=== PATIENT | male | born 1965 | race American Indian/Alaskan Native ===

== ENCOUNTER 2018-02-13 08:53 | Emergency (ER) | payer MEDICAID ==
[~2018-02-13] VITALS: Ht 172.7 cm; Wt 53.0 kg
[~2018-02-13 08:53] MED LIST: ACET-2119 PO; ALBU8HFA PO; AMOX500T2 PO; IBUP-1986 PO; PER10325T PO
[2018-02-13 08:57] VITALS: BP 183/106
== END 2018-02-13 10:50 | disposition home or self-care (01) ==
LOC: ER 08:54
DX: R07.81 Pleurodynia (principal); G89.29 Other chronic pain; Z86.14 Personal history of Methicillin resistant Staphylococcus aureus infection; Z98.890 Other specified postprocedural states; Z56.0 Unemployment, unspecified; Z59.0 Homelessness; Y08.89XA Assault by other specified means, initial encounter
CPT/HCPCS: 71100; 99284

== ENCOUNTER 2018-03-23 11:09 | Emergency (ER) | payer MEDICAID ==
[~2018-03-23] VITALS: Ht 172.7 cm; Wt 68.2 kg
[2018-03-23 11:11] VITALS: BP 113/62
[2018-03-23] MEDS ORDERED: AMOX-422 PO (11:54)
== END 2018-03-23 12:23 | disposition home or self-care (01) ==
LOC: ER 11:10
DX: L03.113 Cellulitis of right upper limb (principal)
CPT/HCPCS: 99283

== ENCOUNTER 2020-03-25 10:46 | Emergency (ER) | payer MEDICAID, OTHER ==
[~2020-03-25] VITALS: Ht 172.7 cm; Wt 65.9 kg
[2020-03-25] MEDS ORDERED: HYDROcodone/acetaminophen 10/325mg tab PO ONE (11:10)
[2020-03-25] MEDS ORDERED: HYDR-4353 PO (12:10)
[2020-03-25 12:18] VITALS: BP 124/98
== END 2020-03-25 12:20 | disposition home or self-care (01) ==
LOC: ER 10:46
DX: M25.522 Pain in left elbow (principal); G89.29 Other chronic pain; Z86.14 Personal history of Methicillin resistant Staphylococcus aureus infection; Z98.890 Other specified postprocedural states; Z56.0 Unemployment, unspecified; Z59.0 Homelessness; Z79.899 Other long term (current) drug therapy
CPT/HCPCS: 73080; 99284

== ENCOUNTER 2020-03-28 10:51 | Inpatient (IN) | payer MEDICAID, OTHER ==
[~2020-03-28] VITALS: Ht 172.7 cm; Wt 56.0 kg
[~2020-03-28 10:51] MED LIST changes: +HYDR-4353 PO
[2020-03-28] MEDS ORDERED: normal saline 1000ml 1,000 ML IV ONE (13:33)
[2020-03-28] MEDS ORDERED: ampicillin/sulbac 3gm/NS 100ml 100 ML IV ONE (14:00)
[2020-03-28] MEDS ORDERED: ampicillin/sulbac 3gm/NS 100ml 100 ML IV SCH (14:00)
[2020-03-28 14:10] LABS: BASOPHILS % (AUTO) 0.2 % (0-1); EOSINOPHILS # (AUTO) 0.2 X10'3 (0-0.9); EOSINOPHILS % (AUTO) 1.4 % (0-6); HEMATOCRIT 39.6 % (42.0-52.0); HEMOGLOBIN 13.1 g/dl (14.0-17.9); LYMPHOCYTES # (AUTO) 1.5 X10'3 (1.1-4.8); LYMPHOCYTES % (AUTO) 10.6 % (21-51); MEAN CORPUSCULAR HGB CONC 33.1 g/dL (33.0-36.5); MEAN CORPUSCULAR VOLUME 93.7 FL (78-98); MEAN PLATELET VOLUME 7.4 FL (7.4-10.4); MONOCYTES % (AUTO) 7.2 % (2-12); NEUTROPHILS # (AUTO) 11.4 X10'3 (1.8-7.7); NEUTROPHILS % (AUTO) 80.6 % (42-75); PLATELET COUNT 362 X10'3 (140-440); RED BLOOD COUNT 4.23 X10'6 (4.70-6.10); WHITE BLOOD COUNT 14.1 X10'3 (4.5-11.0)
[2020-03-28 14:22] LABS: ALANINE AMINOTRANSFERASE 27 U/L (12-78); ALBUMIN 3.2 G/DL (3.4-5.0); ALBUMIN/GLOBULIN RATIO 0.7 (1.1-1.5); ALKALINE PHOSPHATASE 73 IU/L (46-116); ANION GAP 11 (8-16); ASPARTATE AMINO TRANSFERASE 24 U/L (10-37); BILIRUBIN,TOTAL 0.2 MG/DL (0.1-1.0); BLOOD UREA NITROGEN 19 MG/DL (7-18); BUN/CREATININE RATIO 16.2 (5.4-32.0); C-REACTIVE PROTEIN 21.26 MG/DL (0.0-0.5); CALCIUM 9.5 MG/DL (8.5-10.1); CHLORIDE 103 MMOL/L (99-107); CREATININE 1.17 MG/DL (0.60-1.10); GLUCOSE 74 MG/DL (70-104); POTASSIUM 4.1 MMOL/L (3.5-5.1); SODIUM 139 MMOL/L (135-145); TOTAL CARBON DIOXIDE 25.2 MMOL/L (24-32); TOTAL PROTEIN 7.9 G/DL (6.4-8.2); eGFR 65 ML/MIN
[2020-03-28] MEDS ORDERED: NO HOME MEDS (15:13)
[2020-03-28] MEDS ORDERED: ondansetron/PF 4mg/2ml inj IV PRN (15:45)
[2020-03-28] MEDS ORDERED: magnesium 2GM in 50ml NS 50 ML IV PRN (15:45)
[2020-03-28] MEDS ORDERED: normal saline 1000ml 1,000 ML IV SCH (15:45)
[2020-03-28] MEDS ORDERED: potassium Cl 20 mEq SR tablet PO PRN ×2 (15:45)
[2020-03-28] MEDS ORDERED: potassium CL 10mEq/100ml bag 100 ML IV PRN ×2 (15:45)
[2020-03-28] MEDS ORDERED: magnesium Cl slow-release 64mg tablet PO PRN (15:45)
[2020-03-28] MEDS ORDERED: magnesium 4gm in 100ml NS 100 ML IV PRN (15:45)
[2020-03-28] MEDS ORDERED: ketorolac tromethamine 15mg/ml inj. IV ONE (17:25)
[2020-03-28] MEDS ORDERED: LORazepam 2 mg/ml vial IV ONE (17:25)
[2020-03-28] MEDS: VANCOMYCIN 750MG IV in NS 250 ML IV SCH (17:44)
[2020-03-28] MEDS: K and/or MAG REPLACEMENT MC SCH (19:17)
[2020-03-28] MEDS ORDERED: vancomycin/NS 1 GM ADD-VANTAGE 250 ML IV SCH (20:00)
[2020-03-28] MEDS: acetaminophen 325mg tablet PO PRN (23:40)
[2020-03-28] MEDS: normal saline 1000ml 1,000 ML IV SCH (23:40)
[2020-03-28 23:41] VITALS: BP 149/92
[2020-03-29] MEDS: VANCOMYCIN 750MG IV in NS 250 ML IV SCH ×2 (05:00→17:29)
[2020-03-29] MEDS: acetaminophen 325mg tablet PO PRN ×2 (05:01→23:07)
[2020-03-29 05:44] LABS: BASOPHILS # (AUTO) 0.1 X10'3 (0-0.2); BASOPHILS % (AUTO) 0.5 % (0-1); EOSINOPHILS # (AUTO) 0.2 X10'3 (0-0.9); EOSINOPHILS % (AUTO) 1.2 % (0-6); HEMATOCRIT 38.3 % (42.0-52.0); HEMOGLOBIN 12.8 g/dl (14.0-17.9); LYMPHOCYTES % (AUTO) 13.9 % (21-51); MEAN CORPUSCULAR HEMOGLOBIN 31.3 PG (27.0-31.0); MEAN CORPUSCULAR HGB CONC 33.5 g/dL (33.0-36.5); MEAN CORPUSCULAR VOLUME 93.4 FL (78-98); MEAN PLATELET VOLUME 8.1 FL (7.4-10.4); MONOCYTES # (AUTO) 1.5 X10'3 (0-0.9); MONOCYTES % (AUTO) 10.5 % (2-12); NEUTROPHILS # (AUTO) 10.4 X10'3 (1.8-7.7); NEUTROPHILS % (AUTO) 73.9 % (42-75); PLATELET COUNT 384 X10'3 (140-440); WHITE BLOOD COUNT 14.1 X10'3 (4.5-11.0)
[2020-03-29 05:54] LABS: ALBUMIN 2.6 G/DL (3.4-5.0); ANION GAP 9 (8-16); BLOOD UREA NITROGEN 16 MG/DL (7-18); BUN/CREATININE RATIO 13.8 (5.4-32.0); CALCIUM 8.7 MG/DL (8.5-10.1); CHLORIDE 102 MMOL/L (99-107); CREATININE 1.16 MG/DL (0.60-1.10); GLUCOSE 94 MG/DL (70-104); MAGNESIUM 1.7 MG/DL (1.5-2.4); POTASSIUM 4.2 MMOL/L (3.5-5.1); SODIUM 136 MMOL/L (135-145); TOTAL CARBON DIOXIDE 25.2 MMOL/L (24-32); eGFR 65 ML/MIN
--- NOTE | 2020-03-29 06:29 | NUR ---
Problems reprioritized. Patient report given, questions answered & plan of care reviewed with Eva. Addendum: 03/29/20 at 0630 by Jn Samuel RN Amended: Links added.
[2020-03-29] MEDS: K and/or MAG REPLACEMENT MC SCH ×2 (08:00→20:00)
[2020-03-29 08:24] VITALS: BP 157/79
--- NOTE | 2020-03-29 09:23 | NUR ---
PAGER ID: [phone] MESSAGE: pt SHANE CHAUDHARY is having 10/10 pain in elbow unrelieved by non-pharmaceutical therapies. no pain medicine ordered. MD Franklin taking to sx this early afternoon. Eva [id number]
[2020-03-29] MEDS: morphine 2 MG/ML inj. syringe IV PRN ×3 (10:43→19:47)
[2020-03-29 11:58] VITALS: BP 144/89
[2020-03-29 12:14] LABS: PRE OP PARTIAL THROMB. TIME 33 SECONDS (22-32)
--- NOTE | 2020-03-29 15:56 | NUR ---
PAGER ID: [phone] MESSAGE: Panchito Bailey 340B Pt. VERY agitated that he is not going to OR today. Need Ativan and DIET order STAT PLEASE. Thank you. Eva [phone]
--- NOTE | 2020-03-29 15:57 | NUR ---
returned page. Diet ordered and ativan. aware pt. might leave AMA r/t postponed surgery.
[2020-03-29] MEDS: LORazepam 1 MG tablet PO PRN ×2 (16:50→23:07)
--- NOTE | 2020-03-29 17:46 | NUR ---
PAGER ID: [phone] MESSAGE: SHANE CHAUDHARY 340B pt. very cranky. smoke 5 cigs a day. wants 14 mg nicotine patch? MARY CARMEN [phone]
[2020-03-29 18:00] VITALS: BP 159/98
[2020-03-29] MEDS: nicotine 7mg patch - 24hr TD SCH (18:02)
--- NOTE | 2020-03-29 18:33 | NUR ---
This RN went into room to administer nicotine patch. IV alarming high pressure. Noted IV infiltrated. Some puffiness around IV site. Vanco still needs to be administered. Passed this information on to Opal Roth RN during report.
--- NOTE | 2020-03-29 18:36 | NUR ---
Gave report to Opal Montoya RN.
[2020-03-29] MEDS: lactobacillus rhamnosus 10,000 MMU CELLS/CAPSULE PO SCH (19:45)
[2020-03-30] VITALS (22 sets, daily range): BP systolic 122–161; BP diastolic 72–101
[2020-03-30] MEDS: cefepime 1GM in D5W 50mL 50 ML IV SCH ×3 (00:13→15:01)
[2020-03-30] MEDS: morphine 2 MG/ML inj. syringe IV PRN ×5 (00:14→21:20)
[2020-03-30] MEDS ORDERED: VANCOMYCIN LEVEL IV ONE (04:30)
[2020-03-30] MEDS: VANCOMYCIN 750MG IV in NS 250 ML IV SCH (05:11)
[2020-03-30] MEDS: nicotine 7mg patch - 24hr TD SCH (05:21)
--- NOTE | 2020-03-30 05:24 | NUR ---
Nicotine patch fell off in the shower, pt req another. Administered 0800 patch early. provided lemon swabs.
[2020-03-30 05:30] LABS: BASOPHILS # (AUTO) 0.1 X10'3 (0-0.2); BASOPHILS % (AUTO) 0.5 % (0-1); EOSINOPHILS # (AUTO) 0.1 X10'3 (0-0.9); EOSINOPHILS % (AUTO) 1.1 % (0-6); HEMATOCRIT 39.1 % (42.0-52.0); HEMOGLOBIN 12.8 g/dl (14.0-17.9); LYMPHOCYTES # (AUTO) 1.8 X10'3 (1.1-4.8); LYMPHOCYTES % (AUTO) 14.6 % (21-51); MEAN CORPUSCULAR HEMOGLOBIN 30.3 PG (27.0-31.0); MEAN CORPUSCULAR HGB CONC 32.7 g/dL (33.0-36.5); MEAN CORPUSCULAR VOLUME 92.7 FL (78-98); MEAN PLATELET VOLUME 7.8 FL (7.4-10.4); MONOCYTES # (AUTO) 1.4 X10'3 (0-0.9); MONOCYTES % (AUTO) 11.6 % (2-12); NEUTROPHILS # (AUTO) 8.7 X10'3 (1.8-7.7); NEUTROPHILS % (AUTO) 72.2 % (42-75); PLATELET COUNT 373 X10'3 (140-440); RED BLOOD COUNT 4.21 X10'6 (4.70-6.10); RED CELL DISTRIBUTION WIDTH 13.6 % (11.5-14.5); WHITE BLOOD COUNT 12.1 X10'3 (4.5-11.0)
[2020-03-30 05:36] LABS: PARTIAL THROMBOPLASTIN TIME 34 SECONDS (22-32)
[2020-03-30 05:40] LABS: ALBUMIN 2.4 G/DL (3.4-5.0); ANION GAP 8 (8-16); BLOOD UREA NITROGEN 14 MG/DL (7-18); BUN/CREATININE RATIO 11.8 (5.4-32.0); CALCIUM 8.8 MG/DL (8.5-10.1); CHLORIDE 101 MMOL/L (99-107); CREATININE 1.19 MG/DL (0.60-1.10); GLUCOSE 100 MG/DL (70-104); MAGNESIUM 1.9 MG/DL (1.5-2.4); POTASSIUM 4.1 MMOL/L (3.5-5.1); SODIUM 136 MMOL/L (135-145); TOTAL CARBON DIOXIDE 27.5 MMOL/L (24-32); VANCOMYCIN,TROUGH 7.2 UG/ML (6.0-14.0); eGFR 63 ML/MIN
--- NOTE | 2020-03-30 06:32 | NUR ---
Problems reprioritized. Patient report given, questions answered & plan of care reviewed with SHARON Joseph.
--- NOTE | 2020-03-30 06:37 | NUR ---
Patient in room [facility]. I have received report from Opal Roth RN and had the opportunity to ask questions and assume patient care.
[2020-03-30] MEDS: lactobacillus rhamnosus 10,000 MMU CELLS/CAPSULE PO SCH ×2 (07:45→19:25)
[2020-03-30] MEDS: K and/or MAG REPLACEMENT MC SCH ×2 (08:00→20:00)
[2020-03-30] MEDS ORDERED: ringers solution, lacted 1,000 ML IV ONE (08:28)
[2020-03-30] MEDS ORDERED: hydrALAZINE 20mg/ml inj. IV PRN ×2 (08:30→09:35)
[2020-03-30] MEDS ORDERED: ringers solution, lacted 1,000 ML IV SCH (09:34)
[2020-03-30] MEDS ORDERED: fentaNYL/PF 50MCG/1 ML 2ML syringe IV PRN ×2 (09:35)
[2020-03-30] MEDS ORDERED: labetalol 20mg/4ml (5mg/ml) syringe IV PRN (09:35)
[2020-03-30] MEDS ORDERED: ondansetron/PF 4mg/2ml inj IV PRN (09:35)
[2020-03-30] MEDS ORDERED: morphine 2 MG/ML inj. syringe IV PRN (09:35)
[2020-03-30] MEDS ORDERED: amLODIPine 5mg tablet PO ONE (09:50)
--- NOTE | 2020-03-30 09:50 | NUR ---
patients B/P 161/101 dr chaudhary paged. 10mg hydralazine given with no effect. Dr Chaudhary ordered norvasc 5mg po given to patient, is for surgery but will monitor while on floor.
--- NOTE | 2020-03-30 10:09 | NUR ---
ANESTHESIOLOGIST NOTIFIED THAT PATIENT'S PRE-OP BLOOD SUGAR IS 70. PER ANESTHESIOLOGIST OK.
--- NOTE | 2020-03-30 11:05 | NUR ---
Problems reprioritized. Patient report given, questions answered & plan of care reviewed with tello HERRERA.
[2020-03-30] MEDS ORDERED: sevoflurane 250ml liquid IH ONE (11:25)
[2020-03-30] MEDS ORDERED: dexamethasone sod phosphate 10mg/ml inj ONE (11:25)
[2020-03-30] MEDS ORDERED: fentaNYL /PF 50mcg/ml 5ml ampule ONE (11:32)
[2020-03-30] MEDS ORDERED: propofol inj 20 ML IV ONE (11:37)
[2020-03-30] MEDS ORDERED: LIDOcaine 2% (20mg/ml) 5ml vial ONE (11:37)
[2020-03-30] MEDS ORDERED: phenylephrine 10mg/ml inj. ONE (11:42)
[2020-03-30] MEDS ORDERED: ondansetron/PF 4mg/2ml inj ONE (11:47)
--- NOTE | 2020-03-30 12:44 | NUR ---
RECEIVED FROM OR VIA BED ACCOMPANIED BY ANESTHESIOLOGIST DR SILVERMAN, REPORT GIVEN. PT AWAKE AND ALERT. SKIN PINK AND WARM, JASSO LUE IN SPLINT, SPLINT WITH ASHIA WRAP AND SLING DRESSING L UE CDI WITH GABRIELLA DRAIN TO SUCTION. GOOD CAP REFILL, ABD SOFT, ABLE TO WIGGLE FINGERS.
[2020-03-30] MEDS: morphine 4 MG/ML inj SYRINge IV PRN ×2 (13:17→13:28)
[2020-03-30 13:51] LABS: APPEARANCE,SYNOVIAL FLUID CLOUDY; COLOR,SYNOVIAL FLUID YELLOW
[2020-03-30 13:52] LABS: SYN RBC 750 /CU MM (0); SYN WBC 31750 /CU MM (0-200)
--- NOTE | 2020-03-30 13:54 | NUR ---
TRANSPORTED VIA BED ACCOMPANIED BY MYSELF, REPORT GIVEN. PT AWAKE AND ALERT. SKIN PINK AND WARM, JASSO LUE IN SPLINT, SPLINT WITH ASHIA WRAP AND SLING DRESSING L UE CDI WITH GABRIELLA DRAIN TO SUCTION. GOOD CAP REFILL, ABD SOFT, ABLE TO WIGGLE FINGERS. TOLERATING FLUIDS, VSS
--- NOTE | 2020-03-30 14:34 | NUR ---
Received report from Joon HERRERA patient appears comfortable, very "happy" that "we fixed him". VSS. Bandage to left arm CDI. Regular diet recommenced per dr Jensen. david Humphrey. . will continue to monitor patient.
[2020-03-30] MEDS: VANCOmycin 1250MG/NS 250ml Bag 250 ML IV SCH (17:14)
[2020-03-30] MEDS: normal saline 1000ml 1,000 ML IV SCH (17:36)
--- NOTE | 2020-03-30 18:29 | NUR ---
Problems reprioritized. Patient report given, questions answered & plan of care reviewed with patricia HERRERA.
--- NOTE | 2020-03-30 18:39 | NUR ---
Patient in room [facility]. I have received report from Casie HERRERA and had the opportunity to ask questions and assume patient care.
[2020-03-30] MEDS: LORazepam 1 MG tablet PO PRN (23:05)
[2020-03-31] MEDS: cefepime 1GM in D5W 50mL 50 ML IV SCH ×2 (00:19→08:11)
[2020-03-31] MEDS: VANCOmycin 1250MG/NS 250ml Bag 250 ML IV SCH (05:13)
[2020-03-31] MEDS ORDERED: famotidine 20mg tablet PO ONE (06:00)
[2020-03-31 06:04] LABS: BASOPHILS % (AUTO) 0.1 % (0-1); EOSINOPHILS % (AUTO) 0 % (0-6); LYMPHOCYTES # (AUTO) 0.9 X10'3 (1.1-4.8); LYMPHOCYTES % (AUTO) 6.7 % (21-51); MEAN CORPUSCULAR HEMOGLOBIN 30.7 PG (27.0-31.0); MEAN CORPUSCULAR HGB CONC 33.4 g/dL (33.0-36.5); MEAN CORPUSCULAR VOLUME 92.1 FL (78-98); MEAN PLATELET VOLUME 7.4 FL (7.4-10.4); MONOCYTES # (AUTO) 0.7 X10'3 (0-0.9); MONOCYTES % (AUTO) 5.3 % (2-12); NEUTROPHILS % (AUTO) 87.9 % (42-75); PLATELET COUNT 414 X10'3 (140-440); RED BLOOD COUNT 3.91 X10'6 (4.70-6.10); WHITE BLOOD COUNT 13.7 X10'3 (4.5-11.0)
[2020-03-31 06:12] LABS: ALBUMIN 2.2 G/DL (3.4-5.0); ANION GAP 8 (8-16); BLOOD UREA NITROGEN 20 MG/DL (7-18); BUN/CREATININE RATIO 19.4 (5.4-32.0); CALCIUM 8.7 MG/DL (8.5-10.1); CHLORIDE 102 MMOL/L (99-107); CREATININE 1.03 MG/DL (0.60-1.10); GLUCOSE 152 MG/DL (70-104); POTASSIUM 4.1 MMOL/L (3.5-5.1); SODIUM 137 MMOL/L (135-145); TOTAL CARBON DIOXIDE 26.9 MMOL/L (24-32); eGFR 75 ML/MIN
--- NOTE | 2020-03-31 06:30 | NUR ---
Patient in room [facility]. I have received report from Ashley HERRERA and had the opportunity to ask questions and assume patient care.
--- NOTE | 2020-03-31 06:43 | NUR ---
Problems reprioritized. Patient report given, questions answered & plan of care reviewed with Vanessa HERRERA.
[2020-03-31 07:00] VITALS: BP 138/84
[2020-03-31] MEDS: K and/or MAG REPLACEMENT MC SCH (08:00)
[2020-03-31] MEDS: lactobacillus rhamnosus 10,000 MMU CELLS/CAPSULE PO SCH (08:11)
[2020-03-31] MEDS: nicotine 7mg patch - 24hr TD SCH (08:11)
--- NOTE | 2020-03-31 08:29 | NUR ---
PAGER ID: [phone] MESSAGE: Margarita Surg,[id number], re: Lynn, 340B, Please call - pt states has to leave today. Possible AMA.
[2020-03-31] MEDS ORDERED: DOXY-243 PO (08:44)
[2020-03-31] MEDS ORDERED: IBUP-1985 PO (08:45)
[2020-03-31] MEDS ORDERED: ACET-1008 PO (08:45)
--- NOTE | 2020-03-31 09:04 | NUR ---
PAGER ID: [phone] MESSAGE: Vanessa-[facility] [phone] Re: Lynn can we given him a dose of Tylenol of Motrin now please call
[2020-03-31] MEDS ORDERED: OMEP20CA15 PO (09:08)
[2020-03-31] MEDS ORDERED: acetaminophen 325mg tablet PO ONE (09:10)
--- NOTE | 2020-03-31 09:27 | NUR ---
Primary RN Margarita went in to advise patient that we have discharge orders but the military technology specialist is coming to the floor to change patients splint per MD orders. Patient was undressing in the bathroom and IV line was being stretched. Primary RN S/L patient when I walked into room. Patient refused to stay to have the orthopedic shoe maker removed and replace his splint per MD orders. Primary RN Margarita Dc'd patients PIV cannula intact. Patients discharge instructions were reviewed with patient and patient was advised that he is to keep splint and dressing Clean and dry. Patient also advised that he will have to call the phone number provided for the ortho clinic to make a follow up visit for 2 weeks from now. Patient was very much in a hurry to leave but did verbalize understanding of discharge. Patient ambulated to lobby with MARICRUZ Blanc. Patient stated he has all his belongings.
[2020-04-01] MEDS ORDERED: VANCOMYCIN LEVEL IV ONE (04:30)
== END 2020-03-31 09:27 | disposition home or self-care (01) | DRG 383 ==
LOC: ER 10:51 → ED HOLD 15:45 → SUR 3N 19:53
PROVIDERS: ADMIT Internal Medicine; ATTEND Internal Medicine
PROC: 0R9 Upper Joints, Drainage (ICD-10-PCS; principal; 2020-03-30 11:25)
DX: L03.114 Cellulitis of left upper limb (principal); M00.9 Pyogenic arthritis, unspecified; F17.210 Nicotine dependence, cigarettes, uncomplicated
CPT/HCPCS: 36415; 71045; 73070; 80048; 80053; 80202; 82948; 83605; 83735; 85025; 85610; 85651; 85730; 86140; 87040; 87070; 87075; 87077; 87081; 87186; 89051; 93005; 96365; 99285; A4565; A4618; A6222; A6449; A7000; G0378; J0295; J0360; J0692; J1100; J1885; J2001; J2060; J2270; J2370; J2405; J2704; J3010; J3370; J7030; J7050

== ENCOUNTER 2020-04-03 14:42 | Emergency (ER) | payer MEDICAID, OTHER ==
[~2020-04-03] VITALS: Ht 172.7 cm; Wt 57.8 kg
[~2020-04-03 14:42] MED LIST changes: +ACET-1008 PO; -ACET-2119 PO; -ALBU8HFA PO; -AMOX500T2 PO; +DOXY-243 PO; -HYDR-4353 PO; +IBUP-1985 PO; -IBUP-1986 PO; +OMEP20CA15 PO; -PER10325T PO
[2020-04-03] MEDS ORDERED: piperacillin/tazo 3.375gm/50ml 50 ML IV ONE (15:25)
[2020-04-03 15:52] LABS: BASOPHILS # (AUTO) 0.1 X10'3 (0-0.2); BASOPHILS % (AUTO) 0.5 % (0-1); EOSINOPHILS # (AUTO) 0.2 X10'3 (0-0.9); EOSINOPHILS % (AUTO) 1.5 % (0-6); HEMATOCRIT 37.2 % (42.0-52.0); HEMOGLOBIN 12.4 g/dl (14.0-17.9); LYMPHOCYTES # (AUTO) 3.7 X10'3 (1.1-4.8); LYMPHOCYTES % (AUTO) 25.6 % (21-51); MEAN CORPUSCULAR HEMOGLOBIN 30.7 PG (27.0-31.0); MEAN CORPUSCULAR HGB CONC 33.3 g/dL (33.0-36.5); MEAN CORPUSCULAR VOLUME 92.2 FL (78-98); MONOCYTES # (AUTO) 0.7 X10'3 (0-0.9); MONOCYTES % (AUTO) 5.1 % (2-12); NEUTROPHILS # (AUTO) 9.7 X10'3 (1.8-7.7); NEUTROPHILS % (AUTO) 67.3 % (42-75); PLATELET COUNT 542 X10'3 (140-440); RED BLOOD COUNT 4.04 X10'6 (4.70-6.10); RED CELL DISTRIBUTION WIDTH 14.1 % (11.5-14.5); WHITE BLOOD COUNT 14.4 X10'3 (4.5-11.0)
[2020-04-03 15:58] LABS: ALANINE AMINOTRANSFERASE 53 U/L (12-78); ALBUMIN 2.7 G/DL (3.4-5.0); ALBUMIN/GLOBULIN RATIO 0.6 (1.1-1.5); ALKALINE PHOSPHATASE 81 IU/L (46-116); ANION GAP 10 (8-16); ASPARTATE AMINO TRANSFERASE 24 U/L (10-37); BILIRUBIN,TOTAL 0.1 MG/DL (0.1-1.0); BLOOD UREA NITROGEN 13 MG/DL (7-18); BUN/CREATININE RATIO 10.6 (5.4-32.0); CALCIUM 8.5 MG/DL (8.5-10.1); CHLORIDE 105 MMOL/L (99-107); CREATININE 1.23 MG/DL (0.60-1.10); GLUCOSE 87 MG/DL (70-104); POTASSIUM 4.2 MMOL/L (3.5-5.1); SODIUM 143 MMOL/L (135-145); TOTAL CARBON DIOXIDE 27.7 MMOL/L (24-32); TOTAL PROTEIN 7.2 G/DL (6.4-8.2); eGFR 61 ML/MIN
[2020-04-03] MEDS ORDERED: DOXYCYCLINE 100MG CAPSULE PO STA (16:08)
[2020-04-03 16:19] VITALS: BP 138/88
[2020-04-03] MEDS ORDERED: ibuprofen 200mg tablet PO ONE (17:10)
[2020-04-03] MEDS ORDERED: IBUP-1985 PO (17:11)
[2020-04-03] MEDS ORDERED: DOXY100C2 PO (17:11)
== END 2020-04-03 17:22 | disposition home or self-care (01) ==
LOC: ER 14:42
DX: Z48.01 Encounter for change or removal of surgical wound dressing (principal); R22.32 Localized swelling, mass and lump, left upper limb; G89.29 Other chronic pain; Z86.14 Personal history of Methicillin resistant Staphylococcus aureus infection; Z98.890 Other specified postprocedural states; Z59.0 Homelessness; Z56.0 Unemployment, unspecified
CPT/HCPCS: 29105; 36415; 80053; 83605; 84145; 85025; 96365; 99284; J2543